=== PATIENT | female | born 1980 | race Hispanic/Latino ===

== ENCOUNTER 2016-08-23 06:26 | Emergency (ER) | payer OTHER | END 2016-08-23 07:21 | disposition short-term general hospital (02) | LOC: BURERS 06:26 | DX: K21.9 Gastro-esophageal reflux disease without esophagitis (principal); F32.9 Major depressive disorder, single episode, unspecified; F41.9 Anxiety disorder, unspecified; F17.210 Nicotine dependence, cigarettes, uncomplicated; Z98.51 Tubal ligation status; Z79.899 Other long term (current) drug therapy | CPT/HCPCS: 99284 ==

== ENCOUNTER 2019-04-19 10:37 | Emergency (ER) | payer OTHER | END 2019-04-19 11:28 | disposition home or self-care (01) | LOC: BURERS 10:37 | DX: J11.1 Influenza due to unidentified influenza virus with other respiratory manifestations (principal); K21.9 Gastro-esophageal reflux disease without esophagitis; I10 Essential (primary) hypertension; F41.9 Anxiety disorder, unspecified; F32.9 Major depressive disorder, single episode, unspecified; F17.210 Nicotine dependence, cigarettes, uncomplicated | CPT/HCPCS: 87804; 99283 ==

== ENCOUNTER 2022-09-16 21:36 | Emergency (ER) | payer BC, OTHER ==
[2022-09-16] MEDS ORDERED: Ibuprofen 200 MG TAB ONE (22:14)
[2022-09-16 22:25] LABS: #Basophils 0.1 thou/uL (0.0-0.2); #Monocytes 0.7 thou/uL (0.11-0.59); #Neutrophils 9.9 thou/uL (1.40-6.50); %Basophils 0.6 % (0.0-1.0); %Eosinophils 0.2 % (0.0-10.0); %Lymphocytes 8.6 % (21.0-51.0); %Monocytes 5.6 % (0.0-10.0); Hematocrit 37.8 % (36.0-47.0); Hemoglobin 12.6 g/dL (12.0-16.0); Mean Corpuscular HGB CONC 33.3 g/dL (32.0-36.0); Mean Corpuscular Hemoglobin 28.8 pg (27.0-31.0); Mean Corpuscular Volume 86.5 fl (78.0-98.0); Mean Platelet Volume 5.1 fL (7.4-10.4); Platelet Count 304 10x3/uL (130-400); RBC Distribution Width 13.7 % (11.5-14.5); Red Blood Cell (RBC) Count 4.37 mill/uL (4.20-5.40); White Blood Cell (WBC) Count 11.6 10x3/uL (4.8-10.8)
[2022-09-16 22:44] LABS: ALT (SGPT) 63 U/L (8-55); AST (SGOT) 40 U/L (5-34); Albumin 3.8 g/dL (3.5-5.0); Alkaline Phosphatase 77 U/L (40-110); Anion Gap 17 mmol/L (10-20); BUN (Urea Nitrogen) 15 mg/dL (7.0-18.7); Bilirubin, Total 0.4 mg/dL (0.2-1.2); Calc. Creatinine Clearance 0 mL/min (70-130); Calcium 9.1 mg/dL (7.8-10.44); Carbon Dioxide 22 mmol/L (22-29); Chloride 102 mmol/L (98-107); Estimated GFR 78; Glucose 195 mg/dL (70-105); Potassium 3.3 mmol/L (3.5-5.1); Protein, Total 6.8 g/dL (6.0-8.3); Sodium 138 mmol/L (136-145)
[2022-09-16 22:45] LABS: Troponin I 0.011 ng/mL (< 0.028)
[2022-09-16] MEDS ORDERED: Cefepime 2 GM VIAL ONE (23:16)
[2022-09-17] MEDS ORDERED: Ondansetron PF 4 MG/2 ML Vial ONE (00:51)
[2022-09-17] MEDS ORDERED: Acetaminophen 500 MG TAB ONE (01:03)
[2022-09-17] MEDS ORDERED: fentaNYL 50 mcg/mL 1 mL Vial ONE (01:03)
[2022-09-17] MEDS ORDERED: Promethazine HCl 25 MG/ML VIAL ONE (01:09)
[2022-09-17 01:41] LABS: Lactic Acid 2.2 mmol/L (0.5-2.2)
[2022-09-17] MEDS ORDERED: Famotidine/PF 20 mg/2ml Vial ONE (02:07)
== END 2022-09-17 02:19 | disposition short-term general hospital (02) ==
LOC: BURERS 21:36
DX: A41.9 Sepsis, unspecified organism (principal); N39.0 Urinary tract infection, site not specified; E11.9 Type 2 diabetes mellitus without complications; I10 Essential (primary) hypertension; F17.210 Nicotine dependence, cigarettes, uncomplicated; Z79.899 Other long term (current) drug therapy; Z79.84 Long term (current) use of oral hypoglycemic drugs
CPT/HCPCS: 36415; 71046; 80053; 83605; 84484; 85025; 87040; 93005; 96361; 96365; 96366; 96367; 96375; J0692; J2405; J2550; J3010; S0028

== ENCOUNTER 2024-12-29 15:04 | Emergency (ER) | payer BC | END 2024-12-29 15:39 | disposition home or self-care (01) | LOC: BURERS 15:04 | DX: L73.2 Hidradenitis suppurativa (principal); L02.416 Cutaneous abscess of left lower limb; E11.9 Type 2 diabetes mellitus without complications; I10 Essential (primary) hypertension; Z87.891 Personal history of nicotine dependence; K21.9 Gastro-esophageal reflux disease without esophagitis; Z79.4 Long term (current) use of insulin; Z79.899 Other long term (current) drug therapy | CPT/HCPCS: 99282 ==